=== PATIENT | female | born 1965 | race Native Hawaiian/Other Pacific Islander ===

== ENCOUNTER 2018-03-06 12:47 | Outpatient (CLI) | payer OTHER ==
[~2018-03-06 12:47] MED LIST: ADIPEX-P37.5 M1 OR; CELEXA40 MG OR; HYDR25TA60 PO; LEVO0.0723 PO
== END 2018-03-06 23:59 | disposition home or self-care (01) ==
LOC: MAMMO 12:47
DX: Z12.31 Encounter for screening mammogram for malignant neoplasm of breast (principal)